=== PATIENT | female | born 1945 | race Caucasian/White ===

== ENCOUNTER → 2019-06-08 | Outpatient (CLI) | payer MEDICARE ==
[~2019-06-08] MED LIST: B121000 MCG/1 IM; EXELON13.3 MG/21 T; RISPERIDONE M-TA1 MG BC; VITAMIN D22000 UNIT PO; Vitamin D PO
== END | disposition home or self-care (01) ==
LOC: RAD 00:17
DX: M81.0 Age-related osteoporosis without current pathological fracture (principal); Z78.0 Asymptomatic menopausal state